=== PATIENT | male | born 1990 | race Caucasian/White ===

== ENCOUNTER → 2016-12-11 | Outpatient (CLI) | payer OTHER ==
[2016-12-11 14:20] LABS: INR 1.11
== END ==
LOC: M LAB 13:24
PROVIDERS: ATTEND Family Medicine Addiction Medicine
DX: I25.10 Atherosclerotic heart disease of native coronary artery without angina pectoris (principal)

== ENCOUNTER 2016-12-14 18:16 | Emergency (ER) | payer OTHER ==
[~2016-12-14] VITALS: Ht 185.4 cm; Wt 72.6 kg
[2016-12-14] MEDS ORDERED: ALBU17IN2 INH (18:30)
[2016-12-14] MEDS ORDERED: ADV250INH INH (18:30)
[2016-12-14] MEDS ORDERED: COUM10TA PO (18:30)
[2016-12-14] MEDS ORDERED: KETOROLAC 60 MG/2 ML VIAL (J1885) IM ONE (18:45)
[2016-12-14] MEDS ORDERED: methylPREDNISolone INJ 125 MG/2 ML VIAL (J2930) IM ONE (18:45)
[2016-12-14] MEDS ORDERED: ULTR50TA PO (18:51)
[2016-12-14 19:41] VITALS: BP 135/65
== END 2016-12-14 19:41 | disposition home or self-care (01) ==
LOC: M ED 19:04
DX: M76.62 Achilles tendinitis, left leg (principal); Z79.899 Other long term (current) drug therapy; Z79.01 Long term (current) use of anticoagulants; Z79.51 Long term (current) use of inhaled steroids; Z88.1 Allergy status to other antibiotic agents; Z88.2 Allergy status to sulfonamides; Z88.8 Allergy status to other drugs, medicaments and biological substances; F17.210 Nicotine dependence, cigarettes, uncomplicated
CPT/HCPCS: 96372; 99283; J1885; J2930

== ENCOUNTER → 2016-12-19 | Outpatient (CLI) | payer OTHER ==
[~2016-12-19] MED LIST: ADV250INH INH; ALBU17IN2 INH; COUM10TA PO; ULTR50TA PO
[2016-12-19 14:18] LABS: INR 1.1
== END ==
LOC: M LAB 13:41
PROVIDERS: ATTEND Family Medicine Addiction Medicine
DX: Z51.81 Encounter for therapeutic drug level monitoring (principal); Z79.01 Long term (current) use of anticoagulants

== ENCOUNTER 2017-07-01 10:16 | Emergency (ER) | payer OTHER ==
[~2017-07-01] VITALS: Ht 188 cm; Wt 72.7 kg
[~2017-07-01 10:16] MED LIST changes: -ULTR50TA PO; +ULTR50TA8 PO
[2017-07-01] MEDS ORDERED: DULO1CAP2 PO (10:25)
--- NOTE | 2017-07-01 11:12 | REP ---
LEFT ELBOW, FOUR VIEWS: HISTORY: Fall. There is no acute fracture or dislocation. The joint space is normal in appearance. IMPRESSION: There is no acute fracture or dislocation. Signed by Karson Quevedo MD 07/01/2017 11:15 A
[2017-07-01 12:03] VITALS: BP 131/76
[2017-07-07] MEDS ORDERED: COUM2TAB22 PO (19:42)
[2017-07-07] MEDS ORDERED: VENTAER INH (19:42)
[2017-07-14] MEDS ORDERED: COUM6TAB PO (09:13)
[2017-07-14] MEDS ORDERED: COUM10TA PO ×2 (09:13→09:14)
== END 2017-07-01 12:10 | disposition home or self-care (01) ==
LOC: M ED 10:16
DX: M70.22 Olecranon bursitis, left elbow (principal); W22.03XA Walked into furniture, initial encounter; Y92.89 Other specified places as the place of occurrence of the external cause; Y93.89 Activity, other specified; Y99.9 Unspecified external cause status

== ENCOUNTER 2017-07-06 16:56 | Emergency (ER) | payer OTHER ==
[~2017-07-06] VITALS: Ht 188 cm; Wt 72.7 kg
[~2017-07-06 16:56] MED LIST changes: -COUM2TAB22 PO; -COUM6TAB PO; -VENTAER INH
[2017-07-06] MEDS ORDERED: ONDANSETRON 4MG/2ML VIAL (J2405) IV ONE (19:45)
[2017-07-06] MEDS ORDERED: NS 1,000 ML IV ONE (19:45)
[2017-07-06 19:59] LABS: MICROSCOPIC INDICATED? MAN YES (NO)
[2017-07-06 20:01] LABS: BASO # 0.1 10^3/uL (0.0-0.2); BASO % 0.8 % (0.0-1.0); EOS % 0.3 % (0.0-3.0); IMMATURE GRANULOCYTE % 0.3 % (0-0); LYMPH # 1.3 10^3/uL (1.5-6.5); LYMPH % 11.8 % (24.0-44.0); MEAN CORPUSCULAR HEMOGLOBIN 29.4 pg (27.0-33.0); MEAN CORPUSCULAR HGB CONC 34.3 g/dl (32.0-36.5); MEAN CORPUSCULAR VOLUME 85.6 fl (80.0-96.0); MONO # 0.6 10^3/uL (0.0-0.8); MONO % 5.3 % (0.0-5.0); NEUTROPHILS # 9.1 10^3/uL (1.8-7.7); NEUTROPHILS % 81.5 % (36.0-66.0); PLATELET COUNT, AUTOMATED 170 10^3/uL (150-450); RED CELL DISTRIBUTION WIDTH 13.6 % (11.5-14.5); WHITE BLOOD COUNT 11.2 10^3/uL (4.0-10.0)
[2017-07-06 20:29] LABS: RBC, URINE TNTC /hpf (0-3)
[2017-07-06 20:30] LABS: BACTERIA, URINE SMALL AMOUNT; HYALINE CAST, URINE NONE SEEN /lpf (0-1); MICROSCOPIC EXAM PERFORMED; SQUAMOUS EPITHELIAL CELL URINE NONE SEEN /hpf (SMALL AMT)
[2017-07-06 20:46] LABS: ALBUMIN 4.9 GM/DL (3.2-5.2); ALBUMIN/GLOBULIN RATIO 1.44 (1.00-1.93); ALKALINE PHOSPHATASE 90 U/L (45-117); ALT/SGPT 13 U/L (12-78); AMYLASE 33 U/L (25-115); ANION GAP 8 MEQ/L (8-16); AST/SGOT 12 U/L (15-37); BILIRUBIN,DIRECT 0.1 MG/DL (0.0-0.2); BILIRUBIN,TOTAL 0.7 MG/DL (0.2-1.0); BLOOD UREA NITROGEN 11 MG/DL (7-18); CALCIUM LEVEL 8.8 MG/DL (8.5-10.1); CARBON DIOXIDE LEVEL 26 MEQ/L (21-32); CHLORIDE LEVEL 105 MEQ/L (98-107); CREATININE FOR GFR 0.73 MG/DL (0.70-1.30); GLOMERULAR FILTRATION RATE > 60.0 (>60); GLUCOSE, FASTING 72 MG/DL (70-105); POTASSIUM SERUM 3.7 MEQ/L (3.5-5.1); SODIUM LEVEL 139 MEQ/L (136-145); TOTAL PROTEIN 8.3 GM/DL (6.4-8.2)
[2017-07-06 20:49] LABS: INR 8.52
[2017-07-06] MEDS ORDERED: MORPHINE 4 MG/ML 1ML SYRINGE IV ONE (21:00)
[2017-07-06] MEDS ORDERED: PHYTONADIONE 5 MG TAB PO ONE (21:15)
[2017-07-06 22:19] VITALS: BP 104/59
--- NOTE | 2017-07-07 15:23 | REP ---
Clinical: Acute right flank pain and hematuria. Findings: Evaluation of the urinary tract system demonstrates incidental left extrarenal pelvis. The kidneys are without perinephric stranding, hydroureteronephrosis, intrarenal or obstructing ureteral calculi. The bladder is partially collapsed and grossly normal. Prostate/seminal vesicles are normal for age. Liver, spleen, pancreas, and bilateral adrenal glands are normal for noncontrast evaluation. Cannot exclude layering sludge within the gallbladder without evidence for acute cholecystitis by CT evaluation. The enteric system is without obstruction or acute inflammatory process. A normal terminal ileum and appendix are identified in the right lower quadrant. No pelvic fluid or ascites. No obvious adenopathy. Abdominal aorta without aneurysm. Surrounding musculoskeletal structures demonstrate chronic bilateral L5 spondylolysis without spondylolisthesis. Lung bases are clear. Impression: 1. No obvious acute urinary tract pathology. Incidental left extrarenal pelvis. 2. No acute abdominopelvic pathology by noncontrast CT evaluation. 3. Cannot exclude cholelithiasis without evidence for acute cholecystitis. 4. Chronic bilateral L5 spondylolysis without spondylolisthesis. Signed by Moris Simpson MD 07/07/2017 03:15 P
[2017-07-07] MEDS ORDERED: COUM2TAB22 PO (19:42)
[2017-07-07] MEDS ORDERED: VENTAER INH (19:42)
[2017-07-14] MEDS ORDERED: COUM6TAB PO (09:13)
[2017-07-14] MEDS ORDERED: COUM10TA PO ×2 (09:13→09:14)
== END 2017-07-06 22:38 | disposition home or self-care (01) ==
LOC: M ED 16:56
DX: R31.0 Gross hematuria (principal); R79.1 Abnormal coagulation profile; J45.909 Unspecified asthma, uncomplicated; M30.3 Mucocutaneous lymph node syndrome [Kawasaki]; F17.210 Nicotine dependence, cigarettes, uncomplicated; Z79.01 Long term (current) use of anticoagulants; Z79.51 Long term (current) use of inhaled steroids; Z79.899 Other long term (current) drug therapy; Z88.2 Allergy status to sulfonamides
CPT/HCPCS: 74176; 80048; 80076; 81000; 82150; 83690; 85025; 85610; 85730; 87086; 96361; 96374; 96375; 99284; J2405

== ENCOUNTER → 2017-07-06 | Outpatient (REF) | payer OTHER ==
[~2017-07-06] MED LIST changes: +COUM2TAB22 PO; +COUM6TAB PO; +DULO1CAP2 PO; +VENTAER INH
== END ==
LOC: M LAB REF 17:36
PROVIDERS: ATTEND Physician Assistant
DX: R30.0 Dysuria (principal)

== ENCOUNTER → 2017-07-24 | Outpatient (CLI) | payer OTHER ==
[~2017-07-24] MED LIST changes: +COUM2TAB22 PO; +COUM6TAB PO; +VENTAER INH
[2017-07-24 09:40] LABS: INR 1.56
== END ==
LOC: M LAB 08:26
PROVIDERS: ATTEND Internal Medicine
DX: Z79.01 Long term (current) use of anticoagulants (principal)

== ENCOUNTER 2017-11-01 09:11 | Emergency (ER) | payer OTHER | END 2017-11-01 09:52 | disposition home or self-care (01) | LOC: M ED 09:11 | DX: K04.7 Periapical abscess without sinus (principal); I25.2 Old myocardial infarction; R56.9 Unspecified convulsions; J45.909 Unspecified asthma, uncomplicated; M79.7 Fibromyalgia; M30.3 Mucocutaneous lymph node syndrome [Kawasaki]; F99 Mental disorder, not otherwise specified; Z86.73 Personal history of transient ischemic attack (TIA), and cerebral infarction without residual deficits; Z88.2 Allergy status to sulfonamides; Z88.8 Allergy status to other drugs, medicaments and biological substances; Z79.01 Long term (current) use of anticoagulants; Z79.51 Long term (current) use of inhaled steroids | CPT/HCPCS: 99282 ==

== ENCOUNTER → 2017-11-16 | Outpatient (REF) | payer OTHER ==
[2017-11-16 19:23] LABS: INFLUENZA A AMPLIFICATION NEGATIVE (NEGATIVE); INFLUENZA B AMPLIFICATION NEGATIVE (NEGATIVE)
== END ==
LOC: M LAB REF 10:21
DX: J11.1 Influenza due to unidentified influenza virus with other respiratory manifestations (principal)
CPT/HCPCS: 87502

== ENCOUNTER → 2018-06-03 | Outpatient (CLI) | payer OTHER, SELFPAY ==
[2018-06-03 10:27] LABS: HEMATOCRIT 43.3 % (42.0-52.0); HEMOGLOBIN 14.4 g/dl (13.5-17.5); MEAN CORPUSCULAR HGB CONC 33.3 g/dl (32.0-36.5); MEAN CORPUSCULAR VOLUME 87.3 fl (80.0-96.0); PLATELET COUNT, AUTOMATED 193 10^3/uL (150-450); RED BLOOD COUNT 4.96 10^6/uL (4.30-6.10); RED CELL DISTRIBUTION WIDTH 13.3 % (11.5-14.5); WHITE BLOOD COUNT 5.6 10^3/uL (4.0-10.0)
[2018-06-03 10:38] LABS: INR 1.06; PROTHROMBIN TIME 13.9 SECONDS (12.1-14.4)
[2018-06-03 11:12] LABS: ALBUMIN 4.4 GM/DL (3.2-5.2); ALBUMIN/GLOBULIN RATIO 1.63 (1.00-1.93); ALKALINE PHOSPHATASE 83 U/L (45-117); ALT/SGPT 13 U/L (12-78); ANION GAP 8 MEQ/L (8-16); AST/SGOT 12 U/L (7-37); BILIRUBIN,TOTAL 0.8 MG/DL (0.2-1.0); BLOOD UREA NITROGEN 12 MG/DL (7-18); CALCIUM LEVEL 8.7 MG/DL (8.5-10.1); CARBON DIOXIDE LEVEL 25 MEQ/L (21-32); CHLORIDE LEVEL 110 MEQ/L (98-107); CHOLESTEROL LEVEL 153 MG/DL (<200); CHOLESTEROL RISK RATIO 3.326 (<5); CREATININE FOR GFR 0.74 MG/DL (0.70-1.30); GLOMERULAR FILTRATION RATE > 60.0 (>60); GLUCOSE, FASTING 77 MG/DL (70-100); HDL CHOLESTEROL 46 MG/DL (>40); LDL CHOLESTEROL 98 MG/DL (<100); NON-HDL-C 107 MG/DL; POTASSIUM SERUM 4.1 MEQ/L (3.5-5.1); SODIUM LEVEL 143 MEQ/L (136-145); THYROID STIMULATING HORMONE 0.575 uIU/ML (0.358-3.740); TOTAL PROTEIN 7.1 GM/DL (6.4-8.2); TRIGLYCERIDES LEVEL 46 MG/DL (<150)
== END ==
LOC: M LAB 09:09
DX: R53.83 Other fatigue (principal); D64.9 Anemia, unspecified
CPT/HCPCS: 71046

== ENCOUNTER 2018-06-18 08:08 | Inpatient (IN) | payer OTHER ==
[2018-06-18 09:11] LABS: BASO # 0.1 10^3/uL (0.0-0.2); BASO % 1.4 % (0.0-1.0); EOS # 0.2 10^3/uL (0.0-0.50); EOS % 4.3 % (0.0-3.0); HEMOGLOBIN 13.7 g/dl (13.5-17.5); IMMATURE GRANULOCYTE % 0.2 % (0-3.0); LYMPH # 1.5 10^3/uL (1.5-6.5); LYMPH % 29.6 % (24.0-44.0); MEAN CORPUSCULAR HEMOGLOBIN 29.1 pg (27.0-33.0); MEAN CORPUSCULAR HGB CONC 34.3 g/dl (32.0-36.5); MEAN CORPUSCULAR VOLUME 85.1 fl (80.0-96.0); MONO # 0.4 10^3/uL (0.0-0.8); MONO % 7.2 % (0.0-5.0); NEUTROPHILS % 57.3 % (36.0-66.0); PLATELET COUNT, AUTOMATED 180 10^3/uL (150-450); RED CELL DISTRIBUTION WIDTH 13.2 % (11.5-14.5); WHITE BLOOD COUNT 5.1 10^3/uL (4.0-10.0)
[2018-06-18 09:29] LABS: ALBUMIN 4.3 GM/DL (3.2-5.2); ALBUMIN/GLOBULIN RATIO 1.59 (1.00-1.93); ALKALINE PHOSPHATASE 80 U/L (45-117); ALT/SGPT 10 U/L (12-78); ANION GAP 6 MEQ/L (8-16); AST/SGOT 12 U/L (7-37); BILIRUBIN,DIRECT 0.1 MG/DL (0.0-0.2); BILIRUBIN,TOTAL 0.4 MG/DL (0.2-1.0); BLOOD UREA NITROGEN 10 MG/DL (7-18); CALCIUM LEVEL 8.7 MG/DL (8.5-10.1); CARBON DIOXIDE LEVEL 25 MEQ/L (21-32); CHLORIDE LEVEL 111 MEQ/L (98-107); CPK CREATINE PHOSPHOKINASE 131 U/L (39-308); CREATININE FOR GFR 0.65 MG/DL (0.70-1.30); GLOMERULAR FILTRATION RATE > 60.0 (>60); GLUCOSE, FASTING 100 MG/DL (70-100); LIPASE 60 U/L (73-393); MB/CK RELATIVE INDEX 1.15 (< OR =4); POTASSIUM SERUM 3.7 MEQ/L (3.5-5.1); SODIUM LEVEL 142 MEQ/L (136-145); THYROID STIMULATING HORMONE 0.602 uIU/ML (0.358-3.740); TROPONIN I < 0.02 NG/ML (< 0.10)
[2018-06-18 09:43] LABS: ERYTHROCYTE SEDIMENTATION RATE 4 mm/hr (0-15)
[2018-06-18 09:45] LABS: INR 1.07
[2018-06-18] MEDS ORDERED: ISOVUE-370 76% 100ML VIAL (Q9967) As Ordered (10:31)
[2018-06-18] MEDS ORDERED: NITROGLYCERIN 0.4 MG SUBL TABLET SL (15:15)
[2018-06-18] MEDS ORDERED: IPRATROPIUM 0.5MG/ALBUTEROL 2.5MG INH SOL UD 3ML (DUONEB)(J7620) NEB (15:15)
[2018-06-18] MEDS ORDERED: ACETAMINOPHEN TAB 650MG DOSE (2X325MG) PO (15:15)
[2018-06-18] MEDS ORDERED: ONDANSETRON 4MG/2ML VIAL (J2405) IV (15:15)
[2018-06-18] MEDS ORDERED: MORPHINE 4 MG/ML 1ML VIAL/SYRINGE (J2270) IV (15:15)
[2018-06-18] MEDS: IPRATROPIUM 0.5MG/ALBUTEROL 2.5MG INH SOL UD 3ML (DUONEB)(J7620) NEB ×2 (16:00→20:00)
[2018-06-18] MEDS ORDERED: SLF 3 ML SYR IV (17:15)
[2018-06-18] MEDS: ENOXAPARIN 40 MG/0.4 ML SYRINGE (J1650) SC (17:16)
[2018-06-18 18:33] LABS: CPK CREATINE PHOSPHOKINASE 111 U/L (39-308); TROPONIN I < 0.02 NG/ML (< 0.10)
[2018-06-18] MEDS: OMEPRAZOLE 20 MG CAP PO (20:30)
[2018-06-18] MEDS: SLF 3 ML SYR IV (21:30)
[2018-06-19 01:07] LABS: CK-MB VALUE MASS < 1.0 NG/ML (<3.6); CPK CREATINE PHOSPHOKINASE 115 U/L (39-308); MB/CK RELATIVE INDEX 0.87 (< OR =4); TROPONIN I < 0.02 NG/ML (< 0.10)
[2018-06-19] MEDS: SLF 3 ML SYR IV ×3 (05:20→21:04)
[2018-06-19 05:56] LABS: HEMATOCRIT 42.4 % (42.0-52.0); HEMOGLOBIN 14.1 g/dl (13.5-17.5); MEAN CORPUSCULAR HGB CONC 33.3 g/dl (32.0-36.5); MEAN CORPUSCULAR VOLUME 87.1 fl (80.0-96.0); PLATELET COUNT, AUTOMATED 162 10^3/uL (150-450); RED BLOOD COUNT 4.87 10^6/uL (4.30-6.10); RED CELL DISTRIBUTION WIDTH 13.3 % (11.5-14.5); WHITE BLOOD COUNT 6.1 10^3/uL (4.0-10.0)
[2018-06-19 06:07] LABS: INR 1.08; PROTHROMBIN TIME 14.1 SECONDS (12.1-14.4)
[2018-06-19 06:15] LABS: ERYTHROCYTE SEDIMENTATION RATE 3 mm/hr (0-15)
[2018-06-19 06:24] LABS: ANION GAP 6 MEQ/L (8-16); BLOOD UREA NITROGEN 11 MG/DL (7-18); C REACTIVE PROTEIN QUANTITATIV 0.53 MG/DL (0.00-0.30); CALCIUM LEVEL 8.1 MG/DL (8.5-10.1); CARBON DIOXIDE LEVEL 25 MEQ/L (21-32); CHLORIDE LEVEL 108 MEQ/L (98-107); CK-MB VALUE MASS < 1.0 NG/ML (<3.6); CPK CREATINE PHOSPHOKINASE 89 U/L (39-308); CREATININE FOR GFR 0.77 MG/DL (0.70-1.30); GLOMERULAR FILTRATION RATE > 60.0 (>60); GLUCOSE, FASTING 88 MG/DL (70-100); MB/CK RELATIVE INDEX 1.12 (< OR =4); SODIUM LEVEL 139 MEQ/L (136-145); TROPONIN I < 0.02 NG/ML (< 0.10)
[2018-06-19] MEDS: IPRATROPIUM 0.5MG/ALBUTEROL 2.5MG INH SOL UD 3ML (DUONEB)(J7620) NEB ×4 (06:57→20:00)
[2018-06-19] MEDS: ENOXAPARIN 40 MG/0.4 ML SYRINGE (J1650) SC ×2 (08:12→10:40)
[2018-06-19] MEDS: WARFARIN SOD 5 MG TAB PO (08:13)
[2018-06-19] MEDS: OMEPRAZOLE 20 MG CAP PO ×2 (08:13→21:04)
[2018-06-19] MEDS ORDERED: E-Z-PAQUE 96% w/w SUSP 176GM BTL As Ordered (11:33)
[2018-06-19] MEDS ORDERED: E-Z-GAS II EFFERVESCENT PACKET (SODIUM BICARB./CITRIC ACID/SIMETHICONE) As Ordered (11:33)
[2018-06-19] MEDS ORDERED: E-Z-HD 98% w/w 340GM SUSP BTL As Ordered (11:33)
[2018-06-19] MEDS: ENOXAPARIN 80 MG/0.8 ML SYRINGE (J1650) SC (21:04)
[2018-06-20 05:32] LABS: HEMATOCRIT 43.3 % (42.0-52.0); HEMOGLOBIN 14.4 g/dl (13.5-17.5); MEAN CORPUSCULAR HEMOGLOBIN 28.3 pg (27.0-33.0); MEAN CORPUSCULAR HGB CONC 33.3 g/dl (32.0-36.5); MEAN CORPUSCULAR VOLUME 85.2 fl (80.0-96.0); PLATELET COUNT, AUTOMATED 179 10^3/uL (150-450); RED BLOOD COUNT 5.08 10^6/uL (4.30-6.10); RED CELL DISTRIBUTION WIDTH 12.9 % (11.5-14.5); WHITE BLOOD COUNT 5.7 10^3/uL (4.0-10.0)
[2018-06-20 05:40] LABS: INR 1.19; PROTHROMBIN TIME 15.3 SECONDS (12.1-14.4)
[2018-06-20 05:55] LABS: ANION GAP 8 MEQ/L (8-16); BLOOD UREA NITROGEN 14 MG/DL (7-18); CALCIUM LEVEL 8.9 MG/DL (8.5-10.1); CARBON DIOXIDE LEVEL 26 MEQ/L (21-32); CHLORIDE LEVEL 107 MEQ/L (98-107); CREATININE FOR GFR 0.79 MG/DL (0.70-1.30); GLOMERULAR FILTRATION RATE > 60.0 (>60); GLUCOSE, FASTING 90 MG/DL (70-100); SODIUM LEVEL 141 MEQ/L (136-145)
[2018-06-20] MEDS: SLF 3 ML SYR IV (05:57)
[2018-06-20] MEDS: IPRATROPIUM 0.5MG/ALBUTEROL 2.5MG INH SOL UD 3ML (DUONEB)(J7620) NEB ×2 (08:00→12:00)
[2018-06-20] MEDS: WARFARIN SOD 5 MG TAB PO (08:17)
[2018-06-20] MEDS: ENOXAPARIN 80 MG/0.8 ML SYRINGE (J1650) SC (08:17)
[2018-06-20] MEDS: OMEPRAZOLE 20 MG CAP PO (08:17)
== END 2018-06-20 16:59 | disposition home or self-care (01) | DRG 243 ==
LOC: M ED 08:08 → M ED INP 15:01 → M PCU 16:38
DX: K21.9 Gastro-esophageal reflux disease without esophagitis (principal); M30.3 Mucocutaneous lymph node syndrome [Kawasaki]; I25.41 Coronary artery aneurysm; M79.7 Fibromyalgia; R07.89 Other chest pain; Z88.2 Allergy status to sulfonamides; Z88.6 Allergy status to analgesic agent; Z79.01 Long term (current) use of anticoagulants; Z79.899 Other long term (current) drug therapy; Z87.891 Personal history of nicotine dependence; Z91.14 Patient's other noncompliance with medication regimen; J45.909 Unspecified asthma, uncomplicated

== ENCOUNTER 2018-06-25 10:11 | Emergency (ER) | payer OTHER ==
[2018-06-25] MEDS: GI COCKTAIL 50ML BTL(HYOSCYAMINE/MAALOX/LIDOCAINE VISCOUS)(1:3:1) PO (10:46)
[2018-06-25] MEDS: NS 1,000 ML IV (10:52)
[2018-06-25] MEDS: PANTOPRAZOLE 40MG INJ (PROTONIX) (C9113) IV (10:54)
[2018-06-25] MEDS: MORPHINE 4 MG/ML 1ML VIAL/SYRINGE (J2270) IV ×2 (10:56→12:33)
[2018-06-25 11:03] LABS: BASO # 0.1 10^3/uL (0.0-0.2); BASO % 1.4 % (0.0-1.0); EOS # 0.2 10^3/uL (0.0-0.50); EOS % 3.3 % (0.0-3.0); HEMATOCRIT 41.6 % (42.0-52.0); HEMOGLOBIN 14.2 g/dl (13.5-17.5); IMMATURE GRANULOCYTE % 0.2 % (0-3.0); LYMPH # 1.4 10^3/uL (1.5-6.5); LYMPH % 28.1 % (24.0-44.0); MEAN CORPUSCULAR HEMOGLOBIN 28.7 pg (27.0-33.0); MEAN CORPUSCULAR HGB CONC 34.1 g/dl (32.0-36.5); MEAN CORPUSCULAR VOLUME 84.2 fl (80.0-96.0); MONO # 0.4 10^3/uL (0.0-0.8); MONO % 8.3 % (0.0-5.0); NEUTROPHILS # 2.8 10^3/uL (1.8-7.7); NEUTROPHILS % 58.7 % (36.0-66.0); PLATELET COUNT, AUTOMATED 173 10^3/uL (150-450); RED BLOOD COUNT 4.94 10^6/uL (4.30-6.10); RED CELL DISTRIBUTION WIDTH 13.3 % (11.5-14.5); WHITE BLOOD COUNT 4.8 10^3/uL (4.0-10.0)
[2018-06-25 11:13] LABS: PROTHROMBIN TIME 33.5 SECONDS (12.1-14.4)
[2018-06-25 11:14] LABS: KETONE, URINE AUTO RFX NEGATIVE (NEGATIVE); LEUKOCYTE ESTERASE UR AUTO RFX NEGATIVE (NEGATIVE); MUCUS, URINE RFX SMALL (NEGATIVE); NITRITE, URINE AUTO RFX NEGATIVE (NEGATIVE); PARTIAL THROMBOPLASTIN TIME 42.8 SECONDS (25.4-37.6); RBC, URINE AUTO RFX 1 /HPF (0-3); SPECIFIC GRAVITY UR AUTO RFX 1.019 (1.002-1.035); SQUAM EPITHELIAL CELL UR AURFX 0 /HPF (0-6); WBC, URINE AUTO RFX 2 /HPF (0-3)
[2018-06-25 11:19] LABS: D-DIMER QUANT < 270.0 ng/ml (<500)
[2018-06-25 11:25] LABS: ERYTHROCYTE SEDIMENTATION RATE 3 mm/hr (0-15)
[2018-06-25 11:28] LABS: ALBUMIN 4.2 GM/DL (3.2-5.2); ALBUMIN/GLOBULIN RATIO 1.35 (1.00-1.93); ALKALINE PHOSPHATASE 90 U/L (45-117); ALT/SGPT 21 U/L (12-78); ANION GAP 7 MEQ/L (8-16); AST/SGOT 16 U/L (7-37); BILIRUBIN,DIRECT < 0.1 MG/DL (0.0-0.2); BILIRUBIN,TOTAL 0.2 MG/DL (0.2-1.0); BLOOD UREA NITROGEN 9 MG/DL (7-18); C REACTIVE PROTEIN QUANTITATIV < 0.30 MG/DL (0.00-0.30); CARBON DIOXIDE LEVEL 26 MEQ/L (21-32); CHLORIDE LEVEL 108 MEQ/L (98-107); CPK CREATINE PHOSPHOKINASE 142 U/L (39-308); CREATININE FOR GFR 0.74 MG/DL (0.70-1.30); FREE T4 1.01 NG/DL (0.76-1.46); GLOMERULAR FILTRATION RATE > 60.0 (>60); GLUCOSE, FASTING 106 MG/DL (70-100); LIPASE 98 U/L (73-393); MB/CK RELATIVE INDEX 0.99 (< OR =4); NT-PRO BNP 50 PG/ML (<125); POTASSIUM SERUM 3.7 MEQ/L (3.5-5.1); SODIUM LEVEL 141 MEQ/L (136-145); THYROID STIMULATING HORMONE 0.925 uIU/ML (0.358-3.740); TOTAL PROTEIN 7.3 GM/DL (6.4-8.2); TROPONIN I < 0.02 NG/ML (< 0.10)
[2018-06-25] MEDS ORDERED: ISOVUE-370 76% 100ML VIAL (Q9967) As Ordered (11:51)
[2018-06-25 11:57] LABS: LACTIC ACID SEPSIS PROTOCOL 1.4 MMOL/L (0.4-2.0)
[2018-06-25 17:25] LABS: CPK CREATINE PHOSPHOKINASE 118 U/L (39-308); MB/CK RELATIVE INDEX 0.93 (< OR =4); TROPONIN I < 0.02 NG/ML (< 0.10)
== END 2018-06-25 17:54 | disposition home or self-care (01) ==
LOC: M ED 10:11
DX: K29.00 Acute gastritis without bleeding (principal); J45.909 Unspecified asthma, uncomplicated; N18.9 Chronic kidney disease, unspecified; M79.7 Fibromyalgia; K44.9 Diaphragmatic hernia without obstruction or gangrene; I25.2 Old myocardial infarction; Z86.73 Personal history of transient ischemic attack (TIA), and cerebral infarction without residual deficits; Z79.899 Other long term (current) drug therapy; Z79.01 Long term (current) use of anticoagulants; Z88.2 Allergy status to sulfonamides; Z88.8 Allergy status to other drugs, medicaments and biological substances; Z87.891 Personal history of nicotine dependence
CPT/HCPCS: C9113

== ENCOUNTER 2018-07-04 10:55 | Emergency (ER) | payer OTHER ==
[2018-07-04 12:04] LABS: BASO # 0.1 10^3/uL (0.0-0.2); BASO % 1.2 % (0.0-1.0); EOS # 0.3 10^3/uL (0.0-0.50); EOS % 4.4 % (0.0-3.0); HEMATOCRIT 43.8 % (42.0-52.0); HEMOGLOBIN 14.7 g/dl (13.5-17.5); IMMATURE GRANULOCYTE % 0.3 % (0-3.0); LYMPH % 30.6 % (24.0-44.0); MEAN CORPUSCULAR HEMOGLOBIN 28.9 pg (27.0-33.0); MEAN CORPUSCULAR HGB CONC 33.6 g/dl (32.0-36.5); MEAN CORPUSCULAR VOLUME 86.1 fl (80.0-96.0); MONO # 0.5 10^3/uL (0.0-0.8); NEUTROPHILS # 3.7 10^3/uL (1.8-7.7); NEUTROPHILS % 55.5 % (36.0-66.0); PLATELET COUNT, AUTOMATED 198 10^3/uL (150-450); RED BLOOD COUNT 5.09 10^6/uL (4.30-6.10); RED CELL DISTRIBUTION WIDTH 13.3 % (11.5-14.5); WHITE BLOOD COUNT 6.6 10^3/uL (4.0-10.0)
[2018-07-04] MEDS: GI COCKTAIL 50ML BTL(HYOSCYAMINE/MAALOX/LIDOCAINE VISCOUS)(1:3:1) PO (12:37)
[2018-07-04 12:38] LABS: ALBUMIN 4.1 GM/DL (3.2-5.2); ALBUMIN/GLOBULIN RATIO 1.46 (1.00-1.93); ALKALINE PHOSPHATASE 80 U/L (45-117); ALT/SGPT 14 U/L (12-78); ANION GAP 10 MEQ/L (8-16); AST/SGOT 13 U/L (7-37); BILIRUBIN,DIRECT < 0.1 MG/DL (0.0-0.2); BILIRUBIN,TOTAL 0.4 MG/DL (0.2-1.0); BLOOD UREA NITROGEN 11 MG/DL (7-18); CALCIUM LEVEL 8.2 MG/DL (8.5-10.1); CARBON DIOXIDE LEVEL 24 MEQ/L (21-32); CHLORIDE LEVEL 108 MEQ/L (98-107); CPK CREATINE PHOSPHOKINASE 130 U/L (39-308); CREATININE FOR GFR 0.72 MG/DL (0.70-1.30); GLOMERULAR FILTRATION RATE > 60.0 (>60); GLUCOSE, FASTING 88 MG/DL (70-100); LIPASE 77 U/L (73-393); POTASSIUM SERUM 4.1 MEQ/L (3.5-5.1); SODIUM LEVEL 142 MEQ/L (136-145); TOTAL PROTEIN 6.9 GM/DL (6.4-8.2); TROPONIN I < 0.02 NG/ML (< 0.10)
== END 2018-07-04 14:02 | disposition home or self-care (01) ==
LOC: M ED 10:55
DX: R10.30 Lower abdominal pain, unspecified (principal); R10.13 Epigastric pain; G89.29 Other chronic pain; R00.1 Bradycardia, unspecified; K21.9 Gastro-esophageal reflux disease without esophagitis; M79.7 Fibromyalgia; M30.3 Mucocutaneous lymph node syndrome [Kawasaki]; Z88.2 Allergy status to sulfonamides; Z88.6 Allergy status to analgesic agent; Z79.899 Other long term (current) drug therapy; Z79.01 Long term (current) use of anticoagulants; Z79.51 Long term (current) use of inhaled steroids
CPT/HCPCS: 93005

== ENCOUNTER 2018-09-07 15:22 | Emergency (ER) | payer OTHER ==
[~2018-09-07] VITALS: Ht 188 cm; Wt 84.1 kg
[~2018-09-07 15:22] MED LIST changes: +CARA1TAB6 PO; +CLEO300C2 PO; +COUM1TAB17 PO; +LIDO1SOL7 MT; +METO1TAB87 PO; +OMEP20CA3 PO; +PANT40TA3 PO
[2018-09-07] MEDS ORDERED: GI COCKTAIL 50ML BTL(HYOSCYAMINE/MAALOX/LIDOCAINE VISCOUS)(1:3:1) As Ordered ONE (15:54)
[2018-09-07] MEDS ORDERED: GI COCKTAIL 50ML BTL(HYOSCYAMINE/MAALOX/LIDOCAINE VISCOUS)(1:3:1) PO ONE (16:00)
[2018-09-07 16:09] LABS: BASO # 0.1 10^3/uL (0.0-0.2); BASO % 1.2 % (0.0-1.0); EOS # 0.3 10^3/uL (0.0-0.50); EOS % 4.1 % (0.0-3.0); HEMATOCRIT 43.4 % (42.0-52.0); HEMOGLOBIN 14.8 g/dl (13.5-17.5); LYMPH # 1.9 10^3/uL (1.5-6.5); LYMPH % 31.6 % (24.0-44.0); MEAN CORPUSCULAR HGB CONC 34.1 g/dl (32.0-36.5); MEAN CORPUSCULAR VOLUME 84.9 fl (80.0-96.0); MONO # 0.5 10^3/uL (0.0-0.8); MONO % 8.6 % (0.0-5.0); NEUTROPHILS # 3.3 10^3/uL (1.8-7.7); NEUTROPHILS % 54.3 % (36.0-66.0); PLATELET COUNT, AUTOMATED 194 10^3/uL (150-450); RED BLOOD COUNT 5.11 10^6/uL (4.30-6.10); WHITE BLOOD COUNT 6.1 10^3/uL (4.0-10.0)
[2018-09-07 16:37] LABS: ALBUMIN 4.5 GM/DL (3.2-5.2); ALT/SGPT 13 U/L (12-78); BILIRUBIN,DIRECT 0.1 MG/DL (0.0-0.2); BILIRUBIN,TOTAL 0.5 MG/DL (0.2-1.0); BLOOD UREA NITROGEN 12 MG/DL (7-18); CALCIUM LEVEL 8.7 MG/DL (8.5-10.1); CARBON DIOXIDE LEVEL 27 MEQ/L (21-32); CHLORIDE LEVEL 105 MEQ/L (98-107); CREATININE FOR GFR 0.82 MG/DL (0.70-1.30); GLOMERULAR FILTRATION RATE > 60.0 (>60); GLUCOSE, FASTING 89 MG/DL (70-100); LIPASE 72 U/L (73-393); POTASSIUM SERUM 3.9 MEQ/L (3.5-5.1); SODIUM LEVEL 140 MEQ/L (136-145); TOTAL PROTEIN 7.4 GM/DL (6.4-8.2)
--- NOTE | 2018-09-07 16:47 | REP ---
Clinical: Acute abdominal pain. Technique: Lua scale ultrasound using curved array transducer. Findings: The liver and pancreas are normal in contour, size, and echogenicity without focal hepatic or pancreatic lesions identified. The gallbladder is normal without gallstones, wall thickening or pericholecystic fluid. No biliary ductal dilatation is appreciated, and the common bile duct measures 3.0 mm diameter. The right kidney is normal in reniform shape without hydronephrosis and measures 9.8 x 5.5 x 4.0 cm. No ascites. Visualized portions of the abdominal aorta normal. Impression: Normal right upper quadrant and gallbladder abdominal ultrasound. Electronically Signed by Moris Simpson MD 09/07/2018 04:39 P
[2018-09-07 16:55] VITALS: BP 107/59
== END 2018-09-07 16:59 | disposition home or self-care (01) ==
LOC: M ED 15:22
DX: K21.9 Gastro-esophageal reflux disease without esophagitis (principal); J45.909 Unspecified asthma, uncomplicated; M79.7 Fibromyalgia; K44.9 Diaphragmatic hernia without obstruction or gangrene; Z88.8 Allergy status to other drugs, medicaments and biological substances; Z79.899 Other long term (current) drug therapy; Z79.01 Long term (current) use of anticoagulants; Z87.891 Personal history of nicotine dependence

== ENCOUNTER 2018-09-29 08:52 | Day surgery (SDC) | payer OTHER ==
[~2018-09-29] VITALS: Ht 188 cm; Wt 77.6 kg
[~2018-09-29 08:52] MED LIST changes: +LIDOCAINE 2% INJ 100 MG/5 ML SDV (FOR ANES.) As Ordered ONE; +NS 1,000 ML IV ONE; +PROPOFOL 200 MG/20 ML VIAL As Ordered ONE
--- NOTE | 2018-09-29 10:36 | ROOR ---
Patient Name: Chato Laird Procedure Date: 09/29/2018 10:19 AM Date of : 1990 Age: 28 Room: [facility] Gender: Male Note Status: Finalized Procedure: Upper Endoscopy + Biopsies Indications: Generalized abdominal pain Providers: Jorden Yates MD Referring MD: RUDDY MARTIN MD Requesting Provider: Medicines: Monitored Anesthesia Care Complications: No immediate complications. Procedure: Pre-Anesthesia Assessment: - The heart rate, respiratory rate, oxygen saturations, blood pressure, adequacy of pulmonary ventilation, and response to care were monitored throughout the procedure. The Endoscope was introduced through the mouth, and advanced to the second part of duodenum. The upper GI endoscopy was accomplished without difficulty. The patient tolerated the procedure well. Findings: The Z-line was regular and was found 40 cm from the incisors. No other significant abnormalities were identified in a careful examination of the stomach. Biopsies were taken with a cold forceps in the gastric antrum for Helicobacter pylori testing. The exam of the duodenum was otherwise normal. Impression: - Z-line regular, 40 cm from the incisors. - Biopsies were taken with a cold forceps for Helicobacter pylori testing. - The examination was otherwise normal. Recommendation: - Patient has a contact number available for emergencies. The signs and symptoms of potential delayed complications were discussed with the patient. Return to normal activities tomorrow. Written discharge instructions were provided to the patient. - High fiber diet. - Discharge patient to home. - Continue present medications. - Await pathology results. - Telephone GI clinic for pathology results in 1 week. - Check Portal Online for Path Results.([email or web address] - Perform magnetic resonance imaging (MRI) at appointment to be scheduled. - The findings and recommendations were discussed with the patient's family. Jorden Yates MD Jorden Yates MD 09/29/2018 10:35:45 AM This report has been signed electronically. Number of Addenda: 0 Note Initiated On: 09/29/2018 10:19 AM Estimated Blood Loss: Estimated blood loss: none.
[2018-09-29 11:00] VITALS: BP 121/71
== END 2018-09-29 11:07 | disposition home or self-care (01) ==
LOC: M OPP 08:52
PROVIDERS: ATTEND Internal Medicine Gastroenterology
DX: R10.84 Generalized abdominal pain (principal); K58.9 Irritable bowel syndrome, unspecified; K29.50 Unspecified chronic gastritis without bleeding; R12 Heartburn; M79.7 Fibromyalgia; Z79.01 Long term (current) use of anticoagulants; Z79.899 Other long term (current) drug therapy; Z88.8 Allergy status to other drugs, medicaments and biological substances; Z87.891 Personal history of nicotine dependence

== ENCOUNTER → 2018-10-01 | Outpatient (CLI) | payer OTHER ==
[~2018-10-01] MED LIST changes: -LIDOCAINE 2% INJ 100 MG/5 ML SDV (FOR ANES.) As Ordered ONE; -NS 1,000 ML IV ONE; -PROPOFOL 200 MG/20 ML VIAL As Ordered ONE
[2018-10-01 15:13] LABS: BLOOD UREA NITROGEN 13 MG/DL (7-18); CREATININE FOR GFR 0.83 MG/DL (0.70-1.30); GLOMERULAR FILTRATION RATE > 60.0 (>60)
== END ==
LOC: M LAB 14:24
PROVIDERS: ATTEND Internal Medicine Gastroenterology
DX: R10.9 Unspecified abdominal pain (principal)

== ENCOUNTER → 2018-10-03 | Outpatient (CLI) | payer OTHER ==
[~2018-10-03] MED LIST changes: +PROHANCE 279.3MG/ML 15ML VIAL (A9576) As Ordered ONE
--- NOTE | 2018-10-03 21:02 | REP ---
MRI ABDOMEN WITHOUT AND WITH CONTRAST: 10/03/2018. Clinical history: Unspecified abdominal pain. Evaluate for mesenteric ischemia/abdominal angina. Comparison: CT abdomen and pelvis with contrast 06/25/2018, CT angiogram chest including the upper abdomen 06/18/2018, CT abdomen and pelvis 07/07/2017 with reconstructions. Technique: Coronal and axial T2 images were obtained with sagittal T2 sequence also. 3-D gradient echo acquisition before and after infusion of 30 mL of ProHance with volume reconstruction rotated about the longitudinal axis of the abdomen. Field of view included the lower chest to the external iliac vessels. Findings: Abdominal aorta shows no aneurysm or dissection. Origins of the right and left main renal arteries were unremarkable. The course of those arteries intact. The SMA was unremarkable. On this study, there appears to be focal narrowing of the proximal celiac axis with some post stenotic dilatation. I do not see other significant vascular finding. That portion of liver and spleen included were unremarkable. Gallbladder shows no filling defect or wall thickening. Right kidney is unremarkable. Left kidney shows an extrarenal pelvis. Neither shows cyst or solid mass. Adrenal glands are normal. Pancreas unremarkable. Small bowel loops unremarkable. Stomach without hiatal hernia. There is no ascites in the upper abdomen. Visualized bones intact. Impression: 1. 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 No involvement of the SMA, renal arteries, nor any abdominal aortic abnormality. 2. On review of multiple prior reconstructions from CT angiograms that show the celiac axis and SMA without stenosis and most recently on 06/25/2018 CT abdomen, one would wonder about possibility of spasm. Artifact I suppose could give the appearance of stenosis. Given persistent symptoms and absence of other findings, consideration for catheter angiography may be warranted. Electronically Signed by Roman Simon MD 10/04/2018 01:18 P
== END ==
LOC: M RAD 17:02
PROVIDERS: ATTEND Internal Medicine Gastroenterology
DX: R10.9 Unspecified abdominal pain (principal)
CPT/HCPCS: 74185; A9576

== ENCOUNTER 2018-10-30 11:13 | Emergency (ER) | payer OTHER ==
[~2018-10-30] VITALS: Ht 188 cm; Wt 81.8 kg
[~2018-10-30 11:13] MED LIST changes: -PROHANCE 279.3MG/ML 15ML VIAL (A9576) As Ordered ONE
[2018-10-30] MEDS ORDERED: CEPH500C PO (11:26)
[2018-10-30] MEDS ORDERED: VENTAER PO (11:26)
[2018-10-30] MEDS ORDERED: PRED10TA2 PO (11:26)
[2018-10-30 11:35] LABS: BASO # 0.1 10^3/uL (0.0-0.2); EOS # 0.1 10^3/uL (0.0-0.50); EOS % 1.2 % (0.0-3.0); HEMATOCRIT 43.7 % (42.0-52.0); HEMOGLOBIN 15.1 g/dl (13.5-17.5); LYMPH # 1.4 10^3/uL (1.5-6.5); LYMPH % 19.6 % (24.0-44.0); MEAN CORPUSCULAR HGB CONC 34.6 g/dl (32.0-36.5); MEAN CORPUSCULAR VOLUME 83.9 fl (80.0-96.0); MONO # 0.5 10^3/uL (0.0-0.8); MONO % 6.6 % (0.0-5.0); NEUTROPHILS % 71.3 % (36.0-66.0); PLATELET COUNT, AUTOMATED 197 10^3/uL (150-450); RED BLOOD COUNT 5.21 10^6/uL (4.30-6.10); WHITE BLOOD COUNT 6.9 10^3/uL (4.0-10.0)
[2018-10-30 11:48] LABS: INR 2.81; PROTHROMBIN TIME 30.2 SECONDS (12.1-14.4)
[2018-10-30 12:06] LABS: D-DIMER QUANT < 270 ng/ml (<500)
[2018-10-30 12:21] LABS: ALBUMIN 4.6 GM/DL (3.2-5.2); ALT/SGPT 14 U/L (12-78); BILIRUBIN,DIRECT < 0.1 MG/DL (0.0-0.2); BILIRUBIN,TOTAL 0.4 MG/DL (0.2-1.0); BLOOD UREA NITROGEN 14 MG/DL (7-18); CALCIUM LEVEL 8.6 MG/DL (8.5-10.1); CARBON DIOXIDE LEVEL 25 MEQ/L (21-32); CHLORIDE LEVEL 103 MEQ/L (98-107); CPK CREATINE PHOSPHOKINASE 117 U/L (39-308); CREATININE FOR GFR 0.89 MG/DL (0.70-1.30); GLOMERULAR FILTRATION RATE > 60.0 (>60); GLUCOSE, FASTING 101 MG/DL (70-100); LIPASE 87 U/L (73-393); MB/CK RELATIVE INDEX 0.85 (< OR =4); NT-PRO BNP 92 PG/ML (<125); POTASSIUM SERUM 3.9 MEQ/L (3.5-5.1); SODIUM LEVEL 137 MEQ/L (136-145); THYROID STIMULATING HORMONE 0.533 uIU/ML (0.358-3.740); TOTAL PROTEIN 8.1 GM/DL (6.4-8.2); TROPONIN I < 0.02 NG/ML (< 0.10)
[2018-10-30] MEDS ORDERED: ISOVUE-370 76% 100ML VIAL (Q9967) As Ordered ONE (13:17)
[2018-10-30 13:18] LABS: AMPHETAMINES LEVEL URINE NEGATIVE (NEGATIVE); BARBITURATES URINE NEGATIVE (NEGATIVE); BENZODIAZEPINES URINE NEGATIVE (NEGATIVE); CANNABINOIDS URINE POSITIVE (NEGATIVE); COCAINE METABOLITE URINE NEGATIVE (NEGATIVE); METHADONE URINE NEGATIVE (NEGATIVE); OPIATES URINE NEGATIVE (NEGATIVE); PHENCYCLIDINE URINE NEGATIVE (NEGATIVE)
--- NOTE | 2018-10-30 13:19 | REP ---
CHEST, SINGLE VIEW: COMPARISON: 06/25/2018 There is no evidence of acute infiltrate. No pleural effusion is seen. The heart is normal in size. The mediastinal silhouette is unremarkable. The visualized osseous structures are intact. IMPRESSION: No acute pulmonary disease. Electronically Signed by Charan Lua MD 10/31/2018 10:20 A
--- NOTE | 2018-10-30 14:04 | REP ---
CT of the chest with IV contrast, CT angiography: Comparison is 06/18/2018. The pulmonary arteries are adequately opacified. There are no emboli in the pulmonary trunk or central pulmonary arteries. There are no emboli in the lobe or segment pulmonary artery branches. On the comparison study. 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 These aneurysms are again identified today but are better visualized on the prior study because of motion artifact on the study today. There are not significantly changed in size. The lung marquez are unremarkable. There is no mediastinal, hilar or axillary lymph node enlargement. The thoracic aorta is unremarkable. Cardiac size is normal. There is no pericardial effusion. The visualized abdominal contents are unremarkable. 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 The previous identified aneurysm in the right coronary artery is not significantly changed. The aneurysms are better visualized on the comparison study because of motion artifact on the current examination. Electronically Signed by Charan Funez MD 10/30/2018 01:55 P
[2018-10-30 17:34] LABS: CK-MB VALUE MASS < 1.0 NG/ML (<3.6); CPK CREATINE PHOSPHOKINASE 92 U/L (39-308); MB/CK RELATIVE INDEX 1.09 (< OR =4); TROPONIN I < 0.02 NG/ML (< 0.10)
[2018-10-30 18:00] VITALS: BP 117/73
--- NOTE | 2018-10-31 00:47 | ECGEPIP ---
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
--- NOTE | 2018-10-31 00:51 | ECGEPIP ---
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
--- NOTE | 2018-10-31 12:06 | ED PDOC ---
Post-Departure Follow-Up dr tellez faxed formal report of cta for fu Ramo Trejo MD Oct 31, 2018 12:06
== END 2018-10-30 18:23 | disposition home or self-care (01) ==
LOC: M ED 11:13
DX: R07.9 Chest pain, unspecified (principal); R94.31 Abnormal electrocardiogram [ECG] [EKG]; I25.41 Coronary artery aneurysm; Z79.01 Long term (current) use of anticoagulants; Z79.52 Long term (current) use of systemic steroids; Z79.899 Other long term (current) drug therapy; Z79.2 Long term (current) use of antibiotics; Z82.49 Family history of ischemic heart disease and other diseases of the circulatory system; Z83.49 Family history of other endocrine, nutritional and metabolic diseases; Z88.1 Allergy status to other antibiotic agents; Z88.2 Allergy status to sulfonamides; Z88.8 Allergy status to other drugs, medicaments and biological substances
CPT/HCPCS: 36415; 71045; 71275; 80048; 80076; 80307; 82550; 82553; 83690; 83880; 84443; 85025; 85379; 85610; 93005; 93041; 94760; 99285; Q9967

== ENCOUNTER → 2018-11-21 | Outpatient (CLI) | payer OTHER ==
[~2018-11-21] MED LIST changes: +CEPH500C PO; +HEPARIN 1,000 UNITS/ML 10ML VIAL (FOR RADIOLOGY& DIALYSIS ONLY) As Ordered ONE; +ISOVUE-300 61% 50ML VIAL (Q9967) As Ordered ONE; -LIDO1SOL7 MT; +LIDO1SOL8 MT; +LIDOCAINE 2% MDV 20 ML VIAL As Ordered ONE; +MIDAZOLAM INJ 2 MG/2 ML VIAL (J2250) As Ordered ONE; +PRED10TA2 PO; +VENTAER PO; +fentaNYL 100 MCG/2 ML INJECTION (J3010) As Ordered ONE
--- NOTE | 2018-12-17 08:16 | REPIR ---
DATE OF PROCEDURE: 11/21/2018 PREOPERATIVE DIAGNOSES: Celiac artery stenosis, abdominal pain. POSTOPERATIVE DIAGNOSES: Celiac artery stenosis, abdominal pain. PROCEDURE: Aortogram, Mynx closure of the right common femoral arteriotomy. ATTENDING PHYSICIAN: Dr. Katherine Short BEAM WARPER: Meghana Fowler INDICATION: The patient is a 28-year-old male with history of Kawasaki disease who underwent MRA evaluation due to abdominal pain and was noted to have high-grade celiac artery stenosis. The patient will undergo a mesenteric artery angiogram with possible angioplasty stent and/or atherectomy. Risks, benefits and alternative treatment options were discussed with the patient. ANESTHESIA: Local with 10 mL of 2% lidocaine. FLUORO TIME: 0.4 minutes. CONTRAST: 15 mL of Isovue-300. COMPLICATIONS: Drains none. SPECIMENS: None. IMPLANTS: Right common femoral arteriotomy closure with a Mynx closure device. DESCRIPTION OF PROCEDURE: The patient was taken to the angiography suite, placed supine on the angiography room table and then prepped and draped in a standard surgical fashion. The right common femoral artery was cannulated with a micropuncture needle. The micropuncture wire was advanced through the micropuncture needle, which was upsized to a micropuncture sheath. A Bentson wire was advanced through the micropuncture sheath, which was upsized to a 5-Bolivian sheath. An Omni flush catheter was placed in the aorta and aortogram was performed in AP and lateral projections. This showed a high-grade stenosis in the celiac artery of approximately 95%. The superior mesenteric artery was widely patent. Catheter was then removed over a Bentson wire. A Mynx closure was used to close the arteriotomy in the right common femoral artery with an additional 10 minutes of adjunctive pressure applied for hemostasis. Dressings were then applied. The patient tolerated the procedure well. All instrument, sponge, needle counts were correct at the end of the case. There were no complications. Dr. Short was present for and directed the entire case. The patient was transferred to [facility] area and subsequent discharged in stable condition. RADIOLOGY SUPERVISION INTERPRETATION: The aortogram showed the superior mesenteric artery to be widely patent. There was a 95% stenosis in the origin of the celiac artery with no calcific disease noted. A Mynx closure device was used to close the arteriotomy in the right common femoral artery.
== END | disposition home or self-care (01) ==
LOC: M IRPRO 06:50
PROVIDERS: ATTEND Surgery Vascular Surgery
DX: I77.4 Celiac artery compression syndrome (principal)
CPT/HCPCS: 36200; 75625; C1760; C1769; C1887; C1894; G0269; Q9967

== ENCOUNTER → 2018-12-09 | Outpatient (CLI) | payer OTHER ==
[~2018-12-09] MED LIST changes: -HEPARIN 1,000 UNITS/ML 10ML VIAL (FOR RADIOLOGY& DIALYSIS ONLY) As Ordered ONE; -ISOVUE-300 61% 50ML VIAL (Q9967) As Ordered ONE; +LIDO1SOL7 MT; -LIDO1SOL8 MT; -LIDOCAINE 2% MDV 20 ML VIAL As Ordered ONE; -MIDAZOLAM INJ 2 MG/2 ML VIAL (J2250) As Ordered ONE; -fentaNYL 100 MCG/2 ML INJECTION (J3010) As Ordered ONE
--- NOTE | 2018-12-09 11:21 | REP ---
DUPLEX DOPPLER ULTRASOUND SOUND OF CELIAC AND SUPERIOR MESENTERIC ARTERIES Real-time ultrasound evaluation and duplex Doppler interrogation of the celiac and superior mesenteric arteries are performed. Imaging performed in both inspiration and expiration. Peak systolic velocity of the abdominal aorta at the level of these vessels is 141 cm/s. The celiac artery angle to the aorta is 43 degrees with inspiration and 51 degrees with expiration. Peak systolic velocity at the origin of the celiac artery in inspiration is 131 cm/s and expiration 243 cm/s. Superior mesenteric origin angle is 33 degrees in inspiration and 26 degrees in expiration. Peak systolic velocity at that location is 151 cm/s. IMPRESSION: Celiac artery angle in expiration is 51 degrees, which is borderline elevated for diagnosing median arcuate ligament syndrome. Expiratory peak systolic velocity in the celiac artery origin of 243 cm/s does not fulfill strict criteria for this diagnosis, with diagnosis highly suggestive if the peak systolic velocity is above 350 cm/s. The increased velocity with expiration, however, does suggest some degree of celiac artery narrowing with expiration. Electronically Signed by Charan Lua MD 12/10/2018 10:07 A
== END ==
LOC: M RAD 09:09
PROVIDERS: ATTEND Surgery Vascular Surgery
DX: R10.11 Right upper quadrant pain (principal); M30.3 Mucocutaneous lymph node syndrome [Kawasaki]

== ENCOUNTER 2019-03-05 19:34 | Emergency (ER) | payer OTHER ==
[~2019-03-05] VITALS: Ht 188 cm; Wt 81.8 kg
[~2019-03-05 19:34] MED LIST changes: -LIDO1SOL7 MT; +LIDO1SOL8 MT
[2019-03-05 20:07] LABS: BASO # 0.1 10^3/uL (0.0-0.2); BASO % 1.5 % (0.0-1.0); EOS # 0.2 10^3/uL (0.0-0.50); EOS % 3.4 % (0.0-3.0); HEMATOCRIT 42.5 % (42.0-52.0); HEMOGLOBIN 14.3 g/dl (13.5-17.5); LYMPH # 2.7 10^3/uL (1.5-6.5); LYMPH % 39.7 % (24.0-44.0); MEAN CORPUSCULAR HEMOGLOBIN 29.5 pg (27.0-33.0); MEAN CORPUSCULAR HGB CONC 33.6 g/dl (32.0-36.5); MEAN CORPUSCULAR VOLUME 87.8 fl (80.0-96.0); MONO # 0.5 10^3/uL (0.0-0.8); MONO % 7.3 % (0.0-5.0); NEUTROPHILS # 3.2 10^3/uL (1.8-7.7); NEUTROPHILS % 47.7 % (36.0-66.0); PLATELET COUNT, AUTOMATED 206 10^3/uL (150-450); RED BLOOD COUNT 4.84 10^6/uL (4.30-6.10); WHITE BLOOD COUNT 6.8 10^3/uL (4.0-10.0)
[2019-03-05 20:20] LABS: INR 1.17; PROTHROMBIN TIME 14.6 SECONDS (11.8-14.0)
[2019-03-05 20:21] LABS: PARTIAL THROMBOPLASTIN TIME 29.2 SECONDS (25.0-38.4)
[2019-03-05 20:31] LABS: BLOOD UREA NITROGEN 11 MG/DL (7-18); CALCIUM LEVEL 8.7 MG/DL (8.5-10.1); CARBON DIOXIDE LEVEL 25 MEQ/L (21-32); CHLORIDE LEVEL 104 MEQ/L (98-107); CK-MB VALUE MASS 1.3 NG/ML (<3.6); CPK CREATINE PHOSPHOKINASE 198 U/L (39-308); CREATININE FOR GFR 0.84 MG/DL (0.70-1.30); GLOMERULAR FILTRATION RATE > 60.0 (>60); GLUCOSE, FASTING 103 MG/DL (70-100); MB/CK RELATIVE INDEX 0.66 (< OR =4); POTASSIUM SERUM 3.5 MEQ/L (3.5-5.1); SODIUM LEVEL 139 MEQ/L (136-145); TROPONIN I < 0.02 NG/ML (< 0.10)
[2019-03-05 21:52] VITALS: BP 101/57
--- NOTE | 2019-03-05 22:01 | ECGEPIP ---
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
--- NOTE | 2019-03-06 07:37 | REP ---
Portable chest, 08:40 p.m., single AP view with the patient sitting: Comparison is 10/30/2018. The lung marquez are clear. The cardiac size is normal. The juanis, mediastinum, and skeletal structures are unremarkable. Impression: Negative portable chest. There is no interval change. Electronically Signed by Charan Funez MD 03/06/2019 07:29 A
== END 2019-03-05 22:04 | disposition home or self-care (01) ==
LOC: M ED 19:34
DX: R00.2 Palpitations (principal); Z91.14 Patient's other noncompliance with medication regimen; R00.1 Bradycardia, unspecified; K21.9 Gastro-esophageal reflux disease without esophagitis; J45.909 Unspecified asthma, uncomplicated; M30.3 Mucocutaneous lymph node syndrome [Kawasaki]; I25.41 Coronary artery aneurysm; Z79.01 Long term (current) use of anticoagulants; Z79.899 Other long term (current) drug therapy; Z88.6 Allergy status to analgesic agent; Z88.1 Allergy status to other antibiotic agents; Z88.8 Allergy status to other drugs, medicaments and biological substances

== ENCOUNTER 2019-04-18 19:58 | Emergency (ER) | payer OTHER ==
[~2019-04-18] VITALS: Ht 188 cm; Wt 84.1 kg
[~2019-04-18 19:58] MED LIST changes: -DULO1CAP2 PO; +DULO1CAP5 PO; +OMEP1CAP73 PO; -OMEP20CA3 PO
[2019-04-18] MEDS ORDERED: COUM10TA PO (20:07)
[2019-04-18] MEDS ORDERED: ACETAMINOPHEN TAB 650MG DOSE (2X325MG) PO ONE (22:00)
[2019-04-18 22:07] VITALS: BP 117/65
--- NOTE | 2019-04-19 08:33 | REP ---
Clinical: Trauma. Technique: AP, lateral, bilateral oblique views right hand . Findings: The osseous structures and joint spaces are intact and normal. There is no evidence for acute fracture or dislocation. Surrounding soft tissues are unremarkable. Small area of laceration overlies the fifth metacarpal bone. Impression: No acute fracture or dislocation. Electronically Signed by Moris Simpson MD 04/19/2019 08:25 A
== END 2019-04-18 22:08 | disposition home or self-care (01) ==
LOC: M ED 19:58
DX: S60.511A Abrasion of right hand, initial encounter (principal); V86.55XA Driver of 3- or 4- wheeled all-terrain vehicle (ATV) injured in nontraffic accident, initial encounter; Y92.89 Other specified places as the place of occurrence of the external cause; Y93.9 Activity, unspecified; Y99.9 Unspecified external cause status; I25.2 Old myocardial infarction; I10 Essential (primary) hypertension; R56.9 Unspecified convulsions; Z86.73 Personal history of transient ischemic attack (TIA), and cerebral infarction without residual deficits; M30.3 Mucocutaneous lymph node syndrome [Kawasaki]; Z98.61 Coronary angioplasty status; Z79.01 Long term (current) use of anticoagulants; Z79.899 Other long term (current) drug therapy; Z88.6 Allergy status to analgesic agent; Z88.1 Allergy status to other antibiotic agents

== ENCOUNTER 2019-09-01 14:47 | Emergency (ER) | payer OTHER ==
[~2019-09-01] VITALS: Ht 188 cm; Wt 81.8 kg
[~2019-09-01 14:47] MED LIST changes: +OMEP-172 PO; -OMEP1CAP73 PO
[2019-09-01] MEDS ORDERED: ADV250INH INH (14:55)
[2019-09-01] MEDS ORDERED: ACET500T15 PO (14:55)
[2019-09-01 16:08] LABS: BASO % 0.3 % (0.0-1.0); EOS # 0.1 10^3/uL (0.0-0.5); EOS % 0.7 % (0.0-3.0); HEMATOCRIT 52.4 % (42.0-52.0); HEMOGLOBIN 16.6 g/dl (13.5-17.5); LYMPH # 0.5 10^3/uL (1.5-5.0); LYMPH % 4.8 % (24.0-44.0); MEAN CORPUSCULAR HEMOGLOBIN 27.9 pg (27.0-33.0); MEAN CORPUSCULAR HGB CONC 31.7 g/dl (32.0-36.5); MEAN CORPUSCULAR VOLUME 88.2 fl (80.0-96.0); MONO # 0.5 10^3/uL (0.0-0.8); MONO % 4.5 % (0.0-5.0); NEUTROPHILS % 89.3 % (36.0-66.0); PLATELET COUNT, AUTOMATED 191 10^3/uL (150-450); RED BLOOD COUNT 5.94 10^6/uL (4.30-6.10); WHITE BLOOD COUNT 11.2 10^3/uL (4.0-10.0)
[2019-09-01] MEDS ORDERED: ONDANSETRON 4 MG ORAL DISINTEGRATING TAB (Q0162 PER 1MG) PO ONE (16:30)
[2019-09-01 16:31] LABS: INFLUENZA A AMPLIFICATION NEGATIVE (NEGATIVE); INFLUENZA B AMPLIFICATION NEGATIVE (NEGATIVE)
[2019-09-01 16:37] LABS: ALBUMIN 4.9 GM/DL (3.2-5.2); ALT/SGPT 9 U/L (12-78); BILIRUBIN,DIRECT 0.2 MG/DL (0.0-0.2); BILIRUBIN,TOTAL 0.8 MG/DL (0.2-1.0); BLOOD UREA NITROGEN 19 MG/DL (7-18); CARBON DIOXIDE LEVEL 28 MEQ/L (21-32); CHLORIDE LEVEL 107 MEQ/L (98-107); CREATININE FOR GFR 0.89 MG/DL (0.70-1.30); GLOMERULAR FILTRATION RATE > 60.0 (>60); GLUCOSE, FASTING 104 MG/DL (70-100); LIPASE 78 U/L (73-393); POTASSIUM SERUM 4.2 MEQ/L (3.5-5.1); SODIUM LEVEL 140 MEQ/L (136-145); TOTAL PROTEIN 7.9 GM/DL (6.4-8.2)
--- NOTE | 2019-09-01 17:16 | REPVR ---
PROCEDURE INFORMATION: Exam: US Abdomen Limited, Right Upper Quadrant Exam date and time: 09/01/2019 5:07 PM Age: 29 years old Clinical indication: Abdominal pain; Generalized; Additional info: Ruq pain/n/v TECHNIQUE: Imaging protocol: Real-time ultrasound of the abdomen with image documentation. Examination was focused on the right upper quadrant. COMPARISON: GALLBLADDER US 09/07/2018 4:28 PM FINDINGS: Liver: Unremarkable. Gallbladder: No gallstones. No gallbladder wall thickening or pericholecystic fluid. Common bile duct: No stones. No ductal dilatation. Pancreas: Unremarkable as visualized. Right kidney: No mass. No definite stones. No hydronephrosis. IMPRESSION: No acute sonographic findings. Electronically signed by: Tex Navarro On 09/01/2019 17:16:05 PM
[2019-09-01] MEDS ORDERED: ONDA4TAB6 PO (19:14)
[2019-09-01 19:24] VITALS: BP 116/63
== END 2019-09-01 19:25 | disposition home or self-care (01) ==
LOC: M ED 14:47
DX: K52.9 Noninfective gastroenteritis and colitis, unspecified (principal); J45.909 Unspecified asthma, uncomplicated; M79.7 Fibromyalgia; R56.9 Unspecified convulsions; Z79.899 Other long term (current) drug therapy; Z79.01 Long term (current) use of anticoagulants; Z88.2 Allergy status to sulfonamides; Z88.8 Allergy status to other drugs, medicaments and biological substances; Z87.891 Personal history of nicotine dependence
CPT/HCPCS: 36415; 76705; 80048; 80076; 81001; 83690; 85025; 87502; 99283; Q0162

== ENCOUNTER → 2019-10-08 | Outpatient (CLI) | payer MEDICAID ==
[~2019-10-08] MED LIST changes: +ACET500T15 PO; -OMEP-172 PO; +OMEP1CAP73 PO; +ONDA4TAB6 PO
== END ==
LOC: M OUTALCOH 07:49
PROVIDERS: ATTEND Psychiatry & Neurology Addiction Medicine
DX: F12.20 Cannabis dependence, uncomplicated (principal)

== ENCOUNTER → 2019-10-29 | Outpatient (CLI) | payer OTHER ==
[~2019-10-29] MED LIST changes: -LIDO1SOL8 MT; +LIDO2SOL17 MT
--- NOTE | 2019-10-29 10:59 | REPVR ---
PROCEDURE INFORMATION: Exam: MR Head Without Contrast Exam date and time: 10/29/2019 10:51 AM Age: 29 years old Clinical indication: Dizziness and other: Headaches; Patient HX: PT states HX of stroke at . ; Additional info: Headaches/dizziness TECHNIQUE: Imaging protocol: MR of the head without contrast. COMPARISON: No relevant prior studies available. FINDINGS: Brain: There is no extra-axial collection or intra-axial mass. Normal parenchymal signal is preserved. There is diffusion restriction. Ventricles: Normal. No ventriculomegaly. Bones/joints: Unremarkable. Soft tissues: Unremarkable. Sinuses: There is focal opacification of the left sphenoid sinus. Mastoid air cells: Normal as visualized. No mastoid effusion. Orbits: Unremarkable. IMPRESSION: No acute intracranial abnormality. Mild sphenoid sinusitis. Electronically signed by: Chrissy Pandey On 10/29/2019 10:59:37 AM
== END ==
LOC: M RAD 09:43
PROVIDERS: ATTEND Family Medicine
DX: R51 Headache (principal)

== ENCOUNTER → 2020-01-19 | Outpatient (CLI) | payer OTHER ==
--- NOTE | 2020-01-20 03:30 | REP ---
Clinical: Left knee pain. Technique: AP, lateral, bilateral oblique and sunrise views of the left knee. Comparison: 04/22/2014 Findings: Lateral view suggests the possibility of a suprapatellar effusion while sunrise view demonstrates mild lateral patellar subluxation and a chronic 1 cm calcification along the medial aspect of the patella. These findings are unchanged as compared to 2013. The tibiofemoral joint space is normal. No evidence for acute fracture. Impression: Stable finding centered around the patella unchanged compared to 2013. Otherwise normal examination. Electronically Signed by Moris Simpson MD 01/20/2020 03:21 A
== END ==
LOC: M RAD 09:30
PROVIDERS: ATTEND Physician Assistant
DX: M25.562 Pain in left knee (principal)

== ENCOUNTER 2020-08-06 12:12 | Emergency (ER) | payer OTHER ==
[~2020-08-06] VITALS: Ht 188 cm; Wt 87.0 kg
[~2020-08-06 12:12] MED LIST changes: -COUM6TAB PO; +COUM6TAB10 PO; +PANT40TA29 PO; -PANT40TA3 PO
--- NOTE | 2020-08-06 12:35 | REP ---
INDICATION: CHEST PAIN COMPARISON: 03/05/2019 TECHNIQUE: Portable AP view of the chest FINDINGS: The mediastinum and cardiac silhouette are stable and within normal limits for portable technique. The lung marquez are clear without acute consolidation, effusion, or pneumothorax. Skeletal structures are intact. IMPRESSION: No acute cardiopulmonary process appreciated. <Electronically signed by Moris Simpson > 08/06/20 1336
[2020-08-06 12:50] LABS: BASO # 0.1 10^3/uL (0.0-0.2); BASO % 1.1 % (0.0-1.0); EOS # 0.3 10^3/uL (0.0-0.5); EOS % 3.5 % (0.0-3.0); HEMOGLOBIN 14.8 g/dl (13.5-17.5); LYMPH # 2.9 10^3/uL (1.5-5.0); MEAN CORPUSCULAR HEMOGLOBIN 27.8 pg (27.0-33.0); MEAN CORPUSCULAR HGB CONC 32.9 g/dl (32.0-36.5); MEAN CORPUSCULAR VOLUME 84.6 fl (80.0-96.0); MONO # 0.6 10^3/uL (0.0-0.8); NEUTROPHILS # 4.1 10^3/uL (1.5-8.5); NEUTROPHILS % 51.9 % (36.0-66.0); PLATELET COUNT, AUTOMATED 213 10^3/uL (150-450); RED BLOOD COUNT 5.32 10^6/uL (4.30-6.10)
[2020-08-06] MEDS ORDERED: NITROGLYCERIN 0.4 MG SUBL TABLET SL PRN (13:00)
[2020-08-06 13:01] LABS: INR 1.42; PROTHROMBIN TIME 17.7 SECONDS (12.5-14.3)
[2020-08-06 13:02] LABS: PARTIAL THROMBOPLASTIN TIME 30.9 SECONDS (24.2-38.5)
[2020-08-06 13:24] LABS: ALT/SGPT 10 U/L (12-78); BLOOD UREA NITROGEN 11 MG/DL (7-18); CALCIUM LEVEL 8.6 MG/DL (8.5-10.1); CARBON DIOXIDE LEVEL 25 MEQ/L (21-32); CHLORIDE LEVEL 106 MEQ/L (98-107); CK-MB VALUE MASS 1.3 NG/ML (<3.6); CPK CREATINE PHOSPHOKINASE 162 U/L (39-308); CREATININE FOR GFR 0.89 MG/DL (0.70-1.30); GLOMERULAR FILTRATION RATE > 60.0 (>60); GLUCOSE, FASTING 101 MG/DL (70-100); POTASSIUM SERUM 3.4 MEQ/L (3.5-5.1); SODIUM LEVEL 138 MEQ/L (136-145)
[2020-08-06 13:25] LABS: ALBUMIN 4.7 GM/DL (3.2-5.2); BILIRUBIN,DIRECT 0.2 MG/DL (0.0-0.2); FREE T4 1.16 NG/DL (0.76-1.46); LIPASE 59 U/L (73-393); TOTAL PROTEIN 7.4 GM/DL (6.4-8.2); TROPONIN I < 0.02 NG/ML (< 0.10)
[2020-08-06] MEDS ORDERED: ISOVUE-370 76% 100ML VIAL As Ordered ONE (13:28)
[2020-08-06] MEDS ORDERED: POTASSIUM CHLORIDE 10 MEQ SR TABLET PO ONE (13:45)
--- NOTE | 2020-08-06 13:54 | REP ---
INDICATION: pleuritic L chest pain COMPARISON: None. TECHNIQUE: Axial contrast enhanced images from the thoracic inlet to the upper abdomen using pulmonary embolus technique with multiplanar re-formations. 75 ml Isovue 370 intravenous contrast material administered without complication. This CT examination was performed using the following dose reduction techniques: Automated exposure control, adjustment of mA and/or kv according to the patient's size, and use of iterative reconstruction technique. FINDINGS: Satisfactory enhancement of the pulmonary vasculature is achieved and no filling defects are identified to suggest pulmonary embolus. Further evaluation of the mediastinum demonstrates normal thoracic aorta, heart and pericardium. The bilateral lung marqeuz are well aerated and clear without consolidation pleural effusion or pneumothorax. Tracheobronchial tree is patent. No nodule or mass lesion is identified. No adenopathy noted. Surrounding musculoskeletal structures intact IMPRESSION: No evidence for pulmonary embolus. No acute mediastinal or pleural parenchymal process. <Electronically signed by Moris Simpson > 08/06/20 [id number]
[2020-08-06 14:02] VITALS: BP 130/78
--- NOTE | 2020-08-06 15:07 | ECGEPIP ---
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
[2020-08-06 18:15] VITALS: BP 124/68
[2020-08-06 18:44] LABS: CK-MB VALUE MASS 1.5 NG/ML (<3.6); CPK CREATINE PHOSPHOKINASE 128 U/L (39-308); MB/CK RELATIVE INDEX 1.17 (< OR =4); TROPONIN I < 0.02 NG/ML (< 0.10)
--- NOTE | 2020-08-07 06:35 | ECGEPIP ---
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
== END 2020-08-06 19:14 | disposition home or self-care (01) ==
LOC: M ED 12:12
DX: R07.9 Chest pain, unspecified (principal); R94.31 Abnormal electrocardiogram [ECG] [EKG]; J45.909 Unspecified asthma, uncomplicated; I25.2 Old myocardial infarction; Z79.01 Long term (current) use of anticoagulants; Z79.899 Other long term (current) drug therapy; Z86.73 Personal history of transient ischemic attack (TIA), and cerebral infarction without residual deficits; Z87.39 Personal history of other diseases of the musculoskeletal system and connective tissue; Z86.69 Personal history of other diseases of the nervous system and sense organs
CPT/HCPCS: 36415; 71045; 71275; 80047; 80048; 80076; 82550; 82553; 83690; 84439; 84443; 85025; 85610; 85730; 93005; 93041; 94760; 99285; Q9967

== ENCOUNTER → 2023-10-18 | Outpatient (CLI) | payer OTHER ==
[~2023-10-18] MED LIST changes: +LIDO15SO MT; -LIDO2SOL17 MT; +PRED20TA PO
[2023-10-18 09:47] LABS: HEMOGLOBIN 15.5 g/dl (13.5-17.5); MEAN CORPUSCULAR HEMOGLOBIN 28.4 pg (27.0-33.0); MEAN CORPUSCULAR HGB CONC 33.7 g/dl (32.0-36.5); MEAN CORPUSCULAR VOLUME 84.2 fl (80.0-96.0); PLATELET COUNT, AUTOMATED 246 10^3/uL (150-450); RED BLOOD COUNT 5.46 10^6/uL (4.30-6.10); WHITE BLOOD COUNT 6.2 10^3/uL (4.0-10.0)
[2023-10-18 09:59] LABS: INR 1.1; PROTHROMBIN TIME 13.9 SECONDS (12.5-14.5)
[2023-10-18 10:18] LABS: ALBUMIN 4.3 G/DL (3.2-5.2); ALKALINE PHOSPHATASE 116 U/L (46-116); ALT/SGPT < 9 U/L (7.0-40); AST/SGOT 11 U/L (<34); BILIRUBIN,TOTAL 0.6 MG/DL (0.3-1.2); BLOOD UREA NITROGEN 12 MG/DL (9-23); CALCIUM LEVEL 9.2 MG/DL (8.5-10.1); CARBON DIOXIDE LEVEL 29 MMOL/L (20-31); CHLORIDE LEVEL 106 MMOL/L (98-107); CHOLESTEROL LEVEL 167 MG/DL (<200); CHOLESTEROL RISK RATIO 4.31 (<5); GLOMERULAR FILTRATION RATE > 60.0 (>60); GLUCOSE, FASTING 92 MG/DL (60-100); HDL CHOLESTEROL 38.7 MG/DL (>40); LDL CHOLESTEROL 111.7 MG/DL (<100); NON-HDL-C 128.3 MG/DL; POTASSIUM SERUM 4.4 MMOL/L (3.5-5.1); SODIUM LEVEL 140 MMOL/L (136-145); TOTAL PROTEIN 7.6 G/DL (5.7-8.2); TRIGLYCERIDES LEVEL 83 MG/DL (<150)
[2023-10-18 10:22] LABS: HEMOGLOBIN A1c 5.1 % (4.0-6.0)
[2023-10-18 10:32] LABS: THYROID STIMULATING HORMONE 0.809 uIU/ML (0.55-4.78)
== END ==
LOC: M RAD 09:04
PROVIDERS: ATTEND Family Medicine
DX: I10 Essential (primary) hypertension (principal)

== ENCOUNTER 2024-07-25 05:41 | Emergency (ER) | payer OTHER ==
[~2024-07-25] VITALS: Ht 188 cm; Wt 107.8 kg
[~2024-07-25 05:41] MED LIST changes: -LIDO15SO MT; +LIDO15SO8 MT; +ONDA-282 PO; -ONDA4TAB6 PO
[2024-07-25] MEDS ORDERED: IBUP1TAB5 PO (05:47)
[2024-07-25] MEDS ORDERED: AMPICILLIN SOD/SULBACTAM SOD 3 GM in DEXTROSE 5% (D5W) ADV/MINI-BAG 50 ML IV ONE (06:30)
[2024-07-25] MEDS: AMPICILLIN SOD/SULBACTAM SOD 3 GM in SODIUM CHLORIDE 0.9% 100ML ADD 100 ML IV ONE (07:12)
[2024-07-25 07:17] LABS: BASO # 0.1 10^3/uL (0.0-0.2); BASO % 0.9 % (0.0-1.0); EOS # 0.2 10^3/uL (0.0-0.5); EOS % 2.4 % (0.0-3.0); HEMATOCRIT 45.1 % (42.0-52.0); HEMOGLOBIN 15.3 g/dl (13.5-17.5); LYMPH # 1.6 10^3/uL (1.5-5.0); LYMPH % 17.6 % (24.0-44.0); MEAN CORPUSCULAR HEMOGLOBIN 28.3 pg (27.0-33.0); MEAN CORPUSCULAR HGB CONC 33.9 g/dl (32.0-36.5); MEAN CORPUSCULAR VOLUME 83.5 fl (80.0-96.0); MONO # 0.8 10^3/uL (0.0-0.8); MONO % 8.6 % (2.0-8.0); NEUTROPHILS # 6.2 10^3/uL (1.5-8.5); PLATELET COUNT, AUTOMATED 214 10^3/uL (150-450); WHITE BLOOD COUNT 8.8 10^3/uL (4.0-10.0)
[2024-07-25] MEDS: dexAMETHasone 20MG/5ML VIAL IV ONE (07:18)
[2024-07-25 07:41] LABS: ERYTHROCYTE SEDIMENTATION RATE 27 mm/hr (0-15)
[2024-07-25 07:42] LABS: BLOOD UREA NITROGEN 12 MG/DL (9-23); CALCIUM LEVEL 9.1 MG/DL (8.5-10.1); CARBON DIOXIDE LEVEL 24 MMOL/L (20-31); CHLORIDE LEVEL 109 MMOL/L (98-107); CREATININE FOR GFR 0.75 MG/DL (0.70-1.30); GLOMERULAR FILTRATION RATE > 60.0 (>60); GLUCOSE, FASTING 100 MG/DL (60-100); POTASSIUM SERUM 4.1 MMOL/L (3.5-5.1); SODIUM LEVEL 139 MMOL/L (136-145)
[2024-07-25] MEDS ORDERED: AMOX875T2 PO (07:52)
[2024-07-25 08:07] VITALS: BP 135/85; TEMP 95.4; O2SAT 95
== END 2024-07-25 08:10 | disposition home or self-care (01) ==
LOC: M ED 05:41
DX: K02.9 Dental caries, unspecified (principal); Z88.2 Allergy status to sulfonamides; Z88.8 Allergy status to other drugs, medicaments and biological substances; Z79.51 Long term (current) use of inhaled steroids; Z79.1 Long term (current) use of non-steroidal anti-inflammatories (NSAID); Z79.2 Long term (current) use of antibiotics; Z79.52 Long term (current) use of systemic steroids
CPT/HCPCS: 80048; 85025; 85652; 86140; 96365; 96374; 99284; J0295; J1100

== ENCOUNTER 2024-10-31 13:48 | Emergency (ER) | payer OTHER ==
[~2024-10-31] VITALS: Ht 188 cm; Wt 109.1 kg
[~2024-10-31 13:48] MED LIST changes: -ADV250INH INH; +ADVA1AER9 INH; +AMOX875T2 PO; +IBUP1TAB5 PO
[2024-10-31 13:51] VITALS: TEMP 98.1
[2024-10-31] MEDS ORDERED: KETOROLAC 30 MG/ML 1ML VIAL IV ONE (15:00)
[2024-10-31] MEDS: KETOROLAC 60MG 2ML VIAL IM ONE (15:31)
[2024-10-31 16:35] VITALS: BP 128/74; O2SAT 98
== END 2024-10-31 16:36 | disposition home or self-care (01) ==
LOC: M ED 13:48
DX: S80.912A Unspecified superficial injury of left knee, initial encounter (principal); Y92.019 Unspecified place in single-family (private) house as the place of occurrence of the external cause; Y93.9 Activity, unspecified; Y99.9 Unspecified external cause status; W00.0XXA Fall on same level due to ice and snow, initial encounter; Z79.51 Long term (current) use of inhaled steroids; Z79.1 Long term (current) use of non-steroidal anti-inflammatories (NSAID); Z79.2 Long term (current) use of antibiotics; Z79.52 Long term (current) use of systemic steroids; Z79.01 Long term (current) use of anticoagulants
CPT/HCPCS: 73564; 96372; 99284; J1885

== ENCOUNTER → 2024-11-04 | Outpatient (CLI) | payer OTHER | LOC: M SOG 07:51 | PROVIDERS: ATTEND Orthopaedic Surgery | DX: M17.12 Unilateral primary osteoarthritis, left knee (principal) ==